=== PATIENT | female | born 1965 ===

== ENCOUNTER 2025-01-05 11:31 | Outpatient (REF) | payer OTHER, SELFPAY ==
--- NOTE | ~2025-01-05 | US_ITS ---
EXAMINATION: US PELVIS CLINICAL INFORMATION: Pelvic asymmetry COMPARISON: None available. TECHNIQUE: Ultrasound of the pelvis is performed using both transabdominal and transvaginal transducers along with Doppler. Transvaginal imaging is performed due to inadequate visualization transabdominally. FINDINGS: Uterus: The uterus is anteverted and measures 6.4 x 2.6 x 4.8 cm. The double wall endometrial thickness is 3 mm. The uterus is smooth in contour and has normal myometrial echogenicity. No visible fibroid. Adnexa: Both ovaries are visualized. There is normal color flow to the adnexa. There is no ovarian torsion. There is no pelvic ascites or fluid collection. Right ovary measures 2.4 x 1.6 x 2.3 cm. Left ovary measures 2.2 x 0.9 x 0.7 cm. Dedicated imaging in the right pelvic region, in the area of asymmetry, demonstrates no mass or other abnormality. US/US pelvic and transvaginal IMPRESSION: Unremarkable pelvic ultrasound Electronically signed by: Amado Feliz MD 01/05/2025 04:22 PM EDT
--- OUTSIDE RECORDS SUMMARY | 2025-01-05 12:49 | XMS_ITS | Patient Health Record ---
Author Organization [facility] Address [address] [place] [id number] Support Name Relationship Address Phone LIANA HERNANDEZ Guarantor Unknown Reason For Referral No Information Plan Of Treatment No Information
--- OUTSIDE RECORDS SUMMARY | 2025-01-05 12:49 | XMS_ITS | Clinical Summary ---
Author Organization [facility] Address [address] [place] [address] Phone Care Team Providers Care On Awake Counselor Name Role Phone Unavailable Primary Care Provider Unavailabl e Social History Tobacco Use Types Packs/Day Years Used Date Smoking Tobacco: Never Assessed Comments Unknown Sex and Gender Information Value Date Recorded Sex Assigned at Not on file Legal Sex Female 1:28 PM EDT Gender Identity Not on file Sexual Orientation Not on file Plan of Treatment Not on file Medical Devices Not on file Additional Source Comments The information contained in this document represents components of the legal health record. It is not the complete legal health record.[facility]
== END 2025-01-05 11:32 | disposition home or self-care (01) ==
LOC: HO.UMASIMG 11:31
PROVIDERS: Visit Provider Nurse Practitioner Family
DX: R19.03 Right lower quadrant abdominal swelling, mass and lump (principal); D61.818 Other pancytopenia
CPT/HCPCS: 76830; 76856

== ENCOUNTER → 2025-01-05 14:30 | Outpatient (BNV) | payer OTHER, SELFPAY | PROVIDERS: Visit Provider Radiology Diagnostic Radiology | DX: M95.5 Acquired deformity of pelvis (principal) | CPT/HCPCS: 76830; 76856 ==